=== PATIENT | male | born 1990 | race Two or more races ===

== ENCOUNTER 2017-03-02 12:53 | Emergency (ER) | payer MEDICAID ==
[~2017-03-02] VITALS: Ht 170.2 cm; Wt 68.0 kg
[2017-03-02 12:59] VITALS: BP 137/69
== END 2017-03-02 13:48 | disposition home or self-care (01) ==
LOC: ER 12:56
DX: T63.441A Toxic effect of venom of bees, accidental (unintentional), initial encounter (principal); Y92.89 Other specified places as the place of occurrence of the external cause
CPT/HCPCS: A4606; Q0163; Z7610